=== PATIENT | female | born 1945 | race Caucasian/White ===

== ENCOUNTER → 2016-04-04 | Outpatient (CLI) | payer BC ==
[2016-04-04 12:14] LABS: COMPLETE YES; EOS % 1.8 %; HEMATOCRIT 42.3 % (37-47); IG% 0.2 %; LYMPH % 17.5 %; LYMPH ABS # 1.73 K/uL (1.2-3.4); MEAN CORPUSCULAR HEMOGLOBIN 31.4 pg (25-34); MEAN CORPUSCULAR HGB CONC 33.8 g/dl (32-36); MEAN PLATELET VOLUME 12.2 fL (7.4-10.4); MONO % 7.1 %; NEUT % 72.4 %; PLATELET COUNT 265 K/uL (130-400); RED BLOOD COUNT 4.55 M/uL (4.2-5.4)
[2016-04-04 12:55] LABS: FERRITIN 117.8 ng/ml (8.0-388.0); THYROID STIMULATING HORMONE 1.65 uIu/ml (0.300-4.500)
--- NOTE | 2016-04-10 11:56 | CODING QUERY MEDICAL NECESSITY ---
SUPPORTING DIAGNOSIS NEEDED A supporting diagnosis is required for the test/procedure performed on this patient in order for us to be reimbursed by the patient's insurance. Please provide a supporting diagnosis for the following test/procedure listed below next to the test name along with your signature. *If there is no additional diagnosis for this patient that would support the following test/procedure please document that below next to the test/procedure. Test(s)/Procedure(s) that require a supporting diagnosis: * VIT B-12 LEVEL DIAGNOSIS: * DOS: 04/04/16 Provider Signature: Date: Thank you [facility] Once completed, please kindly fax back to [phone] For questions please call [phone]
== END | disposition home or self-care (01) ==
LOC: C.LAB 11:04
PROVIDERS: ATTEND Psychiatry & Neurology Neurology
DX: R25.1 Tremor, unspecified (principal)

== ENCOUNTER → 2017-02-01 | Outpatient (CLI) | payer BC ==
[2017-02-01 15:33] LABS: BLOOD UREA NITROGEN 16 mg/dl (7-18); CREATININE 0.92 mg/dl (0.60-1.20)
== END | disposition home or self-care (01) ==
LOC: C.LAB 12:57
PROVIDERS: ATTEND Psychiatry & Neurology Neurology
DX: Z00.00 Encounter for general adult medical examination without abnormal findings (principal); R48.2 Apraxia; R41.3 Other amnesia; R32 Unspecified urinary incontinence

== ENCOUNTER → 2017-02-04 | Outpatient (CLI) | payer BC ==
[~2017-02-04] MED LIST: GADAVIST IV PRN
--- NOTE | 2017-02-04 14:51 | DIAGNOSTIC IMAGING REPORT ---
MRI OF THE BRAIN WITHOUT AND WITH IV CONTRAST CLINICAL HISTORY: R41.3 Memory [id number] Urinary [id number] Gait apraxia COMPARISON STUDY: 01/27/2015 TECHNIQUE: MRI of the brain was performed from the vertex to the skull base utilizing various T1 and T2 weighted sequences. Following the IV administration of 5.5 mL of Gadavist contrast, additional enhanced images were obtained. FINDINGS: Sagittal T1, axial diffusion, proton density and T2 weighted axial, coronal FLAIR, and pre and post axial T1-weighted images were acquired. These were supplemented with post gadolinium coronal T1 weighted images. No intra or extra-axial mass lesions are visualized. Axial diffusion-weighted images reveal no evidence of acute or subacute infarction. There is no evidence of ventricular dilatation. Proton density T2-weighted and FLAIR images reveal scattered foci of increased T2 signal within the white matter, likely on a small vessel basis. These remain similar to the preceding study. There are no abnormal flow voids. There is no evidence of pathologic enhancement. IMPRESSION: No significant change from the preceding study. No acute intracranial findings. No evidence of intracranial mass. No evidence of acute or subacute infarction. Electronically signed by: Hernesto Hall M.D. 02/04/2017 2:49 PM Dictated Date/Time: 02/04/2017 2:34 PM
== END | disposition home or self-care (01) ==
LOC: C.MRI 13:15
PROVIDERS: ATTEND Psychiatry & Neurology Neurology
DX: R41.3 Other amnesia (principal); R48.2 Apraxia; R32 Unspecified urinary incontinence

== ENCOUNTER 2023-10-24 11:39 | Observation (INO) ==
--- NOTE | 2023-10-24 12:01 | Emergency Department Note ---
Impression & Plan AMS (altered mental status), Acute hypernatremia ED Provider Note HISTORY OF PRESENT ILLNESS: Patient is a 78-year-old female presenting with altered mental status. History is obtained via EMS, as patient is nonverbal. Per report, patient has advanced dementia but is able to do a few ADLs and intermittently communicate verbally. Performance Improvement Coordinator was with the patient from 9 AM to 1400 yesterday and she was reportedly her normal self. However, when the patient was evaluated this morning by the caretakers she seemed to be confused. She did not get herself out of bed like normal. On arrival to the ER, the patient is saturated in urine and is unable to communicate or give any history. Performance Improvement Coordinator (later and supplies more history. Reports that she went to check on the patient this morning around 10 AM when she found the patient laying on her stomach and went to roll her over and found that the patient had vomited. Reports the patient is not acting her normal self. ROS: as above PHYSICAL EXAM: Constitutional: Patient appears in no acute distress. HENT: Head: Normocephalic and atraumatic. Eyes: EOMI, PERRL Mouth/Throat: Mucous membranes moist. Neck: Trachea midline. Neck supple. Cardiovascular: Tachycardic with regular rhythm. No murmurs, rubs or gallops. Intact distal pulses. Pulmonary/Chest: No respiratory distress. Breath sounds clear and equal bilaterally. No wheezes or rales. Abdominal: Abdomen soft, no tenderness, rebound or guarding. Musculoskeletal: No edema, tenderness or deformity noted. Skin: Warm and dry. No rash, erythema, pallor or cyanosis Neurological: Alert, but not answering any questions. CN II-XII grossly intact MDM: - Vitals signs showed hypertension and tachycardia. - History obtained via EMS, given patient's confusion. History as above. - Chronic conditions affecting care: Parkinson's disease; depression/anxiety; dementia - Differential diagnoses include, but are not limited to: UTI; pneumonia; CVA; intracranial hemorrhage; ACS; dysrhythmia; electrolyte abnormality; viral syndrome - Order placed for continuous cardiac monitoring. At this time, monitor showed rate of 100 bpm with normal sinus rhythm, per my interpretation. - External medical records reviewed. Neurology visit note dated 10/04/2023 was reviewed. Patient follows in their clinic for her advanced age dementia and Parkinson's disease. Her zonisamide was decreased at that visit due to patient's weight loss. - EKG interpreted by myself showed normal sinus rhythm. Rate tachycardic at 106 bpm. QT 342. No acute ischemic changes. - Laboratory workup interpreted by myself showed normal WBC; normal PT/INR; hypernatremia (Na 147); normal troponin; normal lipase; normal procalcitonin - CT head wo contrast negative for acute intracranial pathology - CXR negative for pneumonia, per my interpretation - UA obtained via straight cath negative for acute infection. - Patient given 1L NS in ER. - Patient not a TNK candidate, as last known well was over 16 hours ago. Will admit to hospital service for further workup, including potential MRI of the brain, given that patient is not back to her neurological baseline. - Discussion was had with director case about patient's case and need for admission - Hospitalist consulted for admission - Patient admitted to [facility] service for further evaluation and management. 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 Visual hallucinations (Acute) Tremor (Acute) Parkinsons disease (Chronic) Gait apraxia (Acute) Depression with anxiety (Acute) Dementia (Acute) Headache (Acute) Dizziness (Acute) Cognitive changes (Acute) RLS (restless legs syndrome) Seizure-like activity Surgical History H/O ovarian cystectomy History of hysteroscopy History of dental surgery Social History Smoking Status: Never smoker Preferred Language: Indonesian Feels Safe at Home: Yes Allergies Allergies Allergy/AdvReac Type Severity Reaction Status Date / Time No Known Allergies Allergy Unknown Verified 10/04/23 13:03 Home Meds Home Medications Medication Instructions Recorded Confirmed mirtazapine 15 mg tablet 15 mg PO HS 10/01/19 10/04/23 mirabegron 25 mg tablet,extended 25 mg PO DAILY 08/31/22 10/04/23 release 24 hr (Myrbetriq) aspirin 81 mg capsule 81 mg PO DAILY 02/27/23 10/04/23 Previous Rx's Medication Instructions Recorded carbidopa 25 mg-levodopa 100 mg 1 tab PO QAM #90 tabs 02/27/23 tablet carbidopa ER 50 mg-levodopa 200 mg 1 tab PO TID #270 tabs 02/27/23 tablet,extended release donepezil 10 mg tablet 10 mg PO HS 90 days #90 tabs 02/27/23 gabapentin 100 mg capsule 200 mg (2 x 100 mg) PO TID 30 days 02/27/23 #540 caps zonisamide 100 mg capsule 100 mg PO TID #270 caps 02/27/23 quetiapine 50 mg tablet 75 mg (1.5 x 50 mg) PO QPM #45 tabs 06/17/23 sertraline 100 mg tablet 100 mg PO DAILY #90 tabs 08/05/23 Results & Data (ED) Vital Signs Vital Signs - 24 hr 10/24/23 11:50 10/24/23 12:30 10/24/23 12:32 Temperature 37.0 C Temperature Source Axillary Pulse Rate 104 H 99 H 108 H Pulse Rate [Apical] Pulse Rhythm [Apical] Pulse Strength [Apical] Respiratory Rate 16 19 Respiratory Effort / Characteristics Non-Labored Spontaneous Respiratory Depth Normal Respiratory Pattern Regular Blood Pressure 155/108 H 149/81 H Blood Pressure [Right Arm] Blood Pressure Mean 123 103 Blood Pressure Mean [Right Arm] Blood Pressure Position Lying Pulse Oximetry 96 97 Oxygen Delivery Method Room Air Room Air Sepsis Recent Fever Within 48 Hours No Sepsis New/Unexplained Change in Mental Status Yes Sepsis Action Taken by Nursing Physician Notified 10/24/23 12:46 10/24/23 13:00 Temperature Temperature Source Pulse Rate 99 H Pulse Rate [Apical] 89 Pulse Rhythm [Apical] Regular Pulse Strength [Apical] Normal Respiratory Rate 22 20 Respiratory Effort / Characteristics Non-Labored Respiratory Depth Normal Respiratory Pattern Blood Pressure 175/103 H Blood Pressure [Right Arm] 149/81 H Blood Pressure Mean 137 Blood Pressure Mean [Right Arm] 103 Blood Pressure Position Pulse Oximetry 99 97 Oxygen Delivery Method Room Air Room Air Sepsis Recent Fever Within 48 Hours Sepsis New/Unexplained Change in Mental Status Sepsis Action Taken by Nursing Laboratory Data 10/24/23 11:59 10/24/23 11:59 Lab Results 08/01/24 08/01/24 Range/Units 11:59 12:07 WBC 9.96 (4.8-10.8) K/ul RBC 4.63 (4.20-5.40) M/uL Hgb 13.9 (12.0-16.0) g/dl Hct 42.2 (37.0-47.0) % MCV 91.1 (80.0-100.0) fL MCH 30.0 (25.0-34.0) pg MCHC 32.9 (32.0-36.0) g/dL RDW Std Deviation 43.4 (36.4-46.3) fL RDW Coeff of Nava 13.0 (11.5-14.5) % Plt Count 290 (130-400) K/uL MPV 11.5 (9.4-12.4) fL Immature Gran % (Auto) 0.3 % Neut % (Auto) 81.0 % Lymph % (Auto) 9.7 % [place] % (Auto) 7.0 % Eos % (Auto) 1.1 % Baso % (Auto) 0.9 % Neut # (Auto) 8.06 H (1.40-6.50) K/uL Lymph # (Auto) 0.97 L (1.20-3.40) K/uL [place] # (Auto) 0.70 H (0.11-0.59) K/uL Eos # (Auto) 0.11 (0.00-0.50) K/uL Baso # (Auto) 0.09 (0.00-0.20) K/uL Immature Gran # (Auto) 0.03 (0.01-0.20) K/uL PT 10.9 (9.0-12.0) Seconds INR 1.0 (0.9-1.1) Sodium 147 H (136-145) mmol/L Potassium 3.7 (3.5-5.1) mmol/L Chloride 112 H (98-107) mmol/L Carbon Dioxide 25 (21-32) mmol/L Anion Gap 10 (3-11) BUN 28 H (6-23) mg/dl Creatinine 0.85 (0.6-1.2) mg/dl Est Cr Clr Drug Dosing 28.4 ml/min Est GFR ( Amer) 76.1 ml/min Est GFR (Non-Af Amer) 65.6 ml/min BUN/Creatinine Ratio 32.9 H (10-20) Glucose 109 H (70-99(Fasting)) mg/dl Lactate 0.8 (0.4-2.0) mmol/L Calcium 9.7 (8.6-10.3) mg/dl Total Bilirubin 0.6 (0.2-1.0) mg/dl AST 12 L (13-39) U/L ALT < 3 L (7-52) U/L Alkaline Phosphatase 90 (34-104) U/L Troponin I High Sens 9.6 (0-14) pg/ml Total Protein 6.7 (6.0-8.3) gm/dl Albumin 4.5 (3.4-5.0) gm/dl Globulin 2.2 L (2.5-4.0) gm/dl Albumin/Globulin Ratio 2.0 (0.9-2) Lipase 21 (11-82) U/L Procalcitonin < 0.02 (0-0.5) ng/ml Urine Color Yellow Urine Appearance Turbid A (Clear) Urine pH 8.5 H (4.5-7.5) Ur Specific [place] 1.019 (1.000-1.030) Urine Protein Trace H (Negative) Urine Glucose (UA) Negative (Negative) Urine Ketones Negative (Negative) Urine Blood Negative (Negative) Urine Nitrite Negative (Negative) Urine Bilirubin Negative (Negative) Urine Urobilinogen Negative (Negative) Ur Leukocyte Esterase 1+ H (Negative) Urine WBC (Auto) 0-5 (0-5) /hpf Urine RBC (Auto) 0-2 (0-2) /hpf U Hyaline Cast (Auto) 0-2 (0-2) /lpf U Epithel Cells (Auto) 0-2 (0-2) /hpf Urine Bacteria (Auto) None Seen (None Seen) Amorphous Sediment Present A (None Prsent) Administered Medications Discontinued Medications Sodium Chloride (Nss) 1,000 mls @ 999 mls/hr IV .Q1H1M STA Stop: 10/24/23 12:58 Last Infusion: 10/24/23 13:22 Dose: Infused Documented By: Admin: 10/24/23 12:07 Dose: 999 mls/hr Documented By: CHRISTIE Imaging Data Radiologist's Impression: Chest X-Ray 10/24/23 11:58 XR chest 1V portable CLINICAL HISTORY: confusion TECHNIQUE: Single frontal radiograph of the chest was obtained. Comparison: Comparison is made to chest radiograph 12/26/2022 FINDINGS: No lines and tubes are seen. The cardiomediastinal silhouette is normal. The lungs are clear. No evidence of pleural effusion or pneumothorax. IMPRESSION: No acute chest disease. ACT 112: Negative or not required by law. Electronically signed by: Rm Rush M.D. 10/24/2023 12:[address] 10/24/23 11:58 CT head/brain wo con CLINICAL HISTORY: altered mental status Technique: Contiguous axial CT images of the head were acquired from the base of the skull to the vertex without intravenous contrast administration. Images were viewed in brain, subdural and bone windows. Automated dose lowering techniques and/or adjustment according to patient size were utilized for this exam. Comparison: None available at the time of this dictation. Findings: Areas of decreased attenuation are present in the periventricular and subcortical white matter bilaterally consistent with small vessel ischemic disease. Generalized cerebral atrophy with commensurate enlargement of the ventricles, sulci, and cisterns is also present. There is no acute intracranial hemorrhage or evidence of acute territorial infarction. No shift of the midline structures, mass effect, or extra-axial abnormalities are shown. Atherosclerotic calcifications are present in the intracranial segments of the internal carotid arteries. Imaged portions of the paranasal sinuses and mastoid air cells are clear. The orbits appear normal. There are no acute fractures of the calvaria or scalp swelling. Impression: No acute intracranial hemorrhage, no evidence of acute territorial infarction or other acute intracranial disease process. ACT 112: Negative or not required by law. Electronically signed by: Rm Rush M.D. 10/24/2023 12:32 PM Discharge Plan Visit Data Chief Complaint: Altered Mental Status ED Provider: Shilpi Vargas Discharge Problem: AMS (altered mental status), Acute hypernatremia Forms Stand Alone Forms: [facility] [place] Prescriptions Prescriptions: No Action quetiapine 50 mg tablet 75 mg PO QPM Qty: 45 6RF aspirin 81 mg capsule 81 mg PO DAILY carbidopa-levodopa 25-100 mg tablet 1 tab PO QAM Qty: 90 2RF carbidopa-levodopa 50-200 mg tablet extended release 1 tab PO TID Qty: 270 2RF donepezil 10 mg tablet 10 mg PO HS 90 Days Qty: 90 2RF gabapentin 100 mg capsule 200 mg PO TID 30 Days Qty: 540 2RF zonisamide 100 mg capsule 100 mg PO TID Qty: 270 2RF Myrbetriq 25 mg tablet extended release 24 hr 25 mg PO DAILY mirtazapine 15 mg tablet 15 mg PO HS sertraline 100 mg tablet 100 mg PO DAILY Qty: 90 2RF Referrals Referrals: Jen Lawler DO [Primary Care Provider] -
[2023-10-24] MEDS: SODIUM CHLORIDE 0.9% 1,000 ML IV STA (12:07)
[2023-10-24 12:23] LABS: Basophils # (auto) 0.09 K/uL (0.00-0.20); Basophils % (auto) 0.9 %; Eosinophils # (auto) 0.11 K/uL (0.00-0.50); Eosinophils % (auto) 1.1 %; Hematocrit (blood only) 42.2 % (37.0-47.0); Hemoglobin 13.9 g/dl (12.0-16.0); Immature Granulocytes # (auto) 0.03 K/uL (0.01-0.20); Immature Granulocytes % (auto) 0.3 %; Lymphocytes # (auto) 0.97 K/uL (1.20-3.40); Lymphocytes % (auto) 9.7 %; Mean Corpuscular Hgb Conc 32.9 g/dL (32.0-36.0); Mean Corpuscular Volume 91.1 fL (80.0-100.0); Mean Platelet Volume 11.5 fL (9.4-12.4); Neutrophils # (auto) 8.06 K/uL (1.40-6.50); Platelet Count 290 K/uL (130-400); RDW Standard Deviation 43.4 fL (36.4-46.3); Red Blood Count 4.63 M/uL (4.20-5.40); White Blood Count 9.96 K/ul (4.8-10.8)
--- NOTE | 2023-10-24 12:33 | CT Scan Report ---
CT head/brain wo con CLINICAL HISTORY: altered mental status Technique: Contiguous axial CT images of the head were acquired from the base of the skull to the [place] without intravenous contrast administration. Images were viewed in brain, subdural and bone [facility]. Automated dose lowering techniques and/or adjustment according to patient size were utilized for this exam. Comparison: None available at the time of this dictation. Findings: Areas of decreased attenuation are present in the periventricular and subcortical white matter bilate rally consistent with small vessel ischemic disease. Generalized cerebral atrophy with commensurate e nlargement of the ventricles, sulci, and cisterns is also present. There is no acute intracranial hem orrhage or evidence of acute territorial infarction. No shift of the midline structures, mass effect, or extra-axial abnormalities are shown. Atherosclerotic calcifications are present in the intracran ial segments of the internal carotid arteries. Imaged portions of the paranasal sinuses and mastoid air cells are clear. The orbits appear normal. There are no acute fractures of the calvaria or scalp swelling. Impression: No acute intracranial hemorrhage, no evidence of acute territorial infarction or other acute intracra nial disease process. ACT 112: Negative or not required by law. Electronically signed by: Rm Rush M.D. 10/24/2023 12:32 PM
[2023-10-24 12:39] LABS: Anion Gap 10 (3-11); BUN Creatinine Ratio 32.9 (10-20); Blood Urea Nitrogen 28 mg/dl (6-23); Calcium 9.7 mg/dl (8.6-10.3); Carbon Dioxide 25 mmol/L (21-32); Chloride 112 mmol/L (98-107); Creatinine Clr Calc Pharmacy 28.4 ml/min; Est GFR (African American) 76.1 ml/min; Est GFR (Non-African American) 65.6 ml/min; Glucose 109 mg/dl (70-99(Fasting)); Potassium 3.7 mmol/L (3.5-5.1); Sodium 147 mmol/L (136-145)
--- NOTE | 2023-10-24 12:40 | XRay Report ---
XR chest 1V portable CLINICAL HISTORY: confusion TECHNIQUE: Single frontal radiograph of the chest was obtained. Comparison: Comparison is made to chest radiograph 12/26/2022 FINDINGS: No lines and tubes are seen. The cardiomediastinal silhouette is normal. The lungs are clear. No evid ence of pleural effusion or pneumothorax. IMPRESSION: No acute chest disease. ACT 112: Negative or not required by law. Electronically signed by: Rm Rush M.D. 10/24/2023 12:38 PM
[2023-10-24 12:44] LABS: Troponin I High Sensitivity 9.6 pg/ml (0-14)
[2023-10-24 12:47] LABS: Alanine Aminotransferase < 3 U/L (7-52); Albumin Level 4.5 gm/dl (3.4-5.0); Alkaline Phosphatase 90 U/L (34-104); Aspartate Aminotransferase 12 U/L (13-39); Bilirubin,Total 0.6 mg/dl (0.2-1.0); Globulin 2.2 gm/dl (2.5-4.0); Lipase 21 U/L (11-82); Total Protein 6.7 gm/dl (6.0-8.3)
[2023-10-24 12:48] LABS: Prothrombin Time 10.9 Seconds (9.0-12.0)
[2023-10-24 13:01] LABS: Appearance Urine Turbid (Clear); Bacteria Urine Automated None Seen (None Seen); Bilirubin Urine Negative (Negative); Blood Urine Negative (Negative); Cast Urine Automated 0-2 /lpf (0-2); Color Urine Yellow; Epithelial Cell Urine Auto 0-2 /hpf (0-2); Glucose Urine UA Negative (Negative); Ketones Urine Negative (Negative); Leukocyte Esterase Urine 1+ (Negative); Nitrite Urine Negative (Negative); Protein Urine Trace (Negative); RBC Urine Automated 0-2 /hpf (0-2); Specific Gravity Urine 1.019 (1.000-1.030); Urobilinogen Urine Negative (Negative); WBC Urine Automated 0-5 /hpf (0-5); pH Urine 8.5 (4.5-7.5)
[2023-10-24 13:12] LABS: Amorphous Sediment Urine Present (None Prsent)
--- NOTE | 2023-10-24 15:06 | History & Physical Report ---
Date of Service October 24, 2023 Assessment & Plan (1) Metabolic encephalopathy: (2) Acute hypernatremia: (3) Parkinsons disease: (4) Dementia: (5) Depression with anxiety: Plan This is a 78-year-old female who has significant past medical history of dementia in setting of Parkinson's disease, IBS, overactive bladder and depression who presents to ED secondary to altered mental status. Pt with advanced Parkinson disease and dementia. Presents to ED after episode of unwitnessed vomiting vs spitting up pills. Per EMS report ? aspiration. Pt lives at home with and has caretakers during the day. Per ED provider grinding and spraying supervisor felt pt more confused. Poor intake over last few days per and she was w/o her parkinson meds this a.m. due to spitting/vomiting them up which has resulted in her to be very, "stiff." Advanced Parkinson disease with dementia and possible worsened confusion Metabolic encephalopathy in setting of dehydration Hypernatremia Dehydration Possible Aspiration admit to medical unable to get accurate neuro assessment due to pt unable to follow commands does not want aggressive work up with MRI , TSH WNL, no indication for blood cultures and she does not clinical or labs do not represent infection ? aspiration component per history; however CXR clear, no sx empirically tx with IV unasyn for now and probiotic Hydrate with D5 1/2 NSS @ 80cc/hr x 2 L, repeat bmp at 2100 and in a.m. PT/OT ensure proper timing of meds - she takes short acting carbidopa-levodopa at 0800 and long acting 0800 12 and 1600, will bring in long acting continue home meds of carbidopa levodopa, zonisamide, Seroquel, sertraline, gabapentin and Aricept DVT ppx: SQ lovenox PCP: Jen Lawler DNR/DNI per Dispo: admit to medical, hydrate, repeat labs in a.m., PT/OT Pt was seen and examined in collaboration with Dr. Holden, please see addendum A total of 76 minutes was spent coordinating, documenting, and providing care for this patient excluding time spent in the performance of separately billed services. This included personally viewing all current laboratories and imaging studies, medication reconciliation, outpatient chart review, and discussion with specialists. Obed Johnson contact [phone] - please contact with updates History of Present Illness Chief Complaint: AMS and vomiting prior to arrival. Primary Care Provider: Jen Lawler, This is a 78-year-old female who has significant past medical history of dementia in setting of Parkinson's disease, IBS, overactive bladder and depression who presents to ED secondary to altered mental status. Patient lives at home with her and has caretakers during the day. Her is at bedside who helps elicit history as ROS unobtainable from patient. Outpt records reviewed. He states he woke up and left the house around 830. He was going golfing today. He felt she was in her usual state of health. He then received a call from the grinding and spraying supervisor that when she went to check on her she was lying in droll and had spit up her medicine. There is question if she may have vomited or aspirated. Per ED provider who spoke to grinding and spraying supervisor she felt that she was more confused than usual. at bedside is concerned that she did not get her Parkinson's medications in the morning since she spit them up and therefore he self administered to her in the ED at approximately 1400. He self administered a carbidopa levodopa [id number] ER tablet as well as her short acting carbidopa levodopa 25-100 mg tablet. At baseline Patient is ambulatory without assist device. She did have 3 falls yesterday and he reports over the last 3 months her cognition has been worsening. She has also been coming more unsteady. He states he does not wish to pursue further imaging for example MRI to eval for possible stroke. He denies any recent illness, fever, chills, sweats, reports of vomiting or diarrhea. She is incontinent of stool and urine. He gives her Colace once daily. He states that she has not been eating and drinking well. He typically can get her to eat a good breakfast, but the rest of the day it is difficult to get her meals or medications. In ED patient made hemodynamically stable. Her lab work was notable for elevated sodium at 147, chloride 112, BUN 28, creatinine 0.85, negative urinalysis for infection, chest x-ray negative, respiratory BioFire negative. She received IV fluids in the ED. Allergies Allergy/AdvReac Type Severity Reaction Status Date / Time No Known Allergies Allergy Unknown Verified 10/04/23 13:03 Home Medications Medication Instructions Recorded Confirmed Type mirtazapine 15 mg tablet 15 mg PO HS 10/01/19 10/24/23 History carbidopa 25 mg-levodopa 100 mg 1 tab PO QAM #90 tabs 02/27/23 10/24/23 Rx tablet carbidopa ER 50 mg-levodopa 200 mg 1 tab PO TID #270 tabs 02/27/23 10/24/23 Rx tablet,extended release donepezil 10 mg tablet 10 mg PO HS 90 days #90 tabs 02/27/23 10/24/23 Rx zonisamide 100 mg capsule 100 mg PO TID #270 caps 02/27/23 10/24/23 Rx alendronate 70 mg tablet 70 mg PO SA 10/24/23 10/24/23 History cholecalciferol (vitamin D3) 50 50 mcg PO DAILY 10/24/23 10/24/23 History mcg (2,000 unit) capsule (Vitamin D3) gabapentin 100 mg capsule 100 mg PO TID 10/24/23 10/24/23 History quetiapine 50 mg tablet 50 mg PO QPM 10/24/23 10/24/23 History sertraline 100 mg tablet 100 mg PO DAILY 10/24/23 10/24/23 History Past Med/Surg History Problem List (Updated 10/24/23 @ 16:05 by Sujey Toro PA-C) Metabolic encephalopathy Acute hypernatremia (Acute) AMS (altered mental status) (Acute) 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 Visual hallucinations (Acute) Tremor (Acute) Parkinsons disease (Chronic) Gait apraxia (Acute) Depression with anxiety (Acute) Dementia (Acute) Headache (Acute) Dizziness (Acute) Cognitive changes (Acute) RLS (restless legs syndrome) Seizure-like activity Surgical History H/O ovarian cystectomy History of hysteroscopy History of dental surgery Social History Smoking Status: Never smoker Hx Alcohol Use: No Hx Substance Use: No Preferred Language: [place] Car Lubricator Required: No Beliefs That Will Affect Care: None Current Living Situation: Spouse Other Information That Helps Us Care for You: No Feels Safe at Home: Yes Safety Concerns: Feels Safe At This Time Review of Systems Review of Systems: Unobtainable due to cognitive status Physical Exam Physical Exam: Constitutional: Chronically ill appearing, F, Thin, parkinsonian affect, m asked facies, vitals as above, NAD, sitting up in bed, unable to answer questions appropriately Head: Normocephalic, Atraumatic Eyes: PERRL, conjunctivae normal, anicteric sclerae ENMT: external ear and nose normal, oropharynx dry membranes Neck: trachea midline, no thyromegaly normal visual inspection Respiratory: normal respiratory effort, lungs clear to auscultation, no wheeze, rales, rhonchi. poor inspiratory effort. No accessory muscle use Cardiovascular: RRR, no murmur, no edema Vessels: no JVD or carotid bruit Chest: normal inspection of chest Abdomen: normal bowel sounds, soft, nontender, no hepatosplenomegaly Musculoskeletal: no cyanosis or clubbing, unable to assess neuro/msk exam as pt non able to follow commands due to dementia Skin: no rashes, warm and dry normal turgor Neurologic: no face palsy, CN's II-XI intact bilaterally and moves all extremities Psychiatric: alert but not oriented, euthymic affect Lymphatic: no cervical or axillary lymphadenopathy : deferred Results & Data Results & Data Vital Signs (Past 12 Hours) Vital Signs Temp Pulse Pulse Resp BP BP Pulse Ox 10/24/23 13:00 99 H 20 175/103 H 97 10/24/23 12:46 89 22 149/81 H 99 10/24/23 12:32 108 H 10/24/23 12:30 99 H 19 149/81 H 97 10/24/23 11:50 37.0 C 104 H 16 155/108 H 96 O2 Del Method 10/24/23 13:00 Room Air 10/24/23 12:46 Room Air 10/24/23 12:32 10/24/23 12:30 Room Air 10/24/23 11:50 Room Air Laboratory Results I have independently reviewed and interpreted patient's admitting labs including CBC, CMP, PT/INR, lipase, UA and resp biofire and troponin. Diagnostic Findings Chest X-Ray 10/24/23 11:58 XR chest 1V portable CLINICAL HISTORY: confusion TECHNIQUE: Single frontal radiograph of the chest was obtained. Comparison: Comparison is made to chest radiograph 12/26/2022 FINDINGS: No lines and tubes are seen. The cardiomediastinal silhouette is normal. The lungs are clear. No evidence of pleural effusion or pneumothorax. IMPRESSION: No acute chest disease. ACT 112: Negative or not required by law. Electronically signed by: Rm Rush M.D. 10/24/2023 12:[address] 10/24/23 11:58 CT head/brain wo con CLINICAL HISTORY: altered mental status Technique: Contiguous axial CT images of the head were acquired from the base of the skull to the vertex without intravenous contrast administration. Images were viewed in brain, subdural and bone windows. Automated dose lowering techniques and/or adjustment according to patient size were utilized for this exam. Comparison: None available at the time of this dictation. Findings: Areas of decreased attenuation are present in the periventricular and subcortical white matter bilaterally consistent with small vessel ischemic disease. Generalized cerebral atrophy with commensurate enlargement of the ventricles, sulci, and cisterns is also present. There is no acute intracranial hemorrhage or evidence of acute territorial infarction. No shift of the midline structures, mass effect, or extra-axial abnormalities are shown. Atherosclerotic calcifications are present in the intracranial segments of the internal carotid arteries. Imaged portions of the paranasal sinuses and mastoid air cells are clear. The orbits appear normal. There are no acute fractures of the calvaria or scalp swelling. Impression: No acute intracranial hemorrhage, no evidence of acute territorial infarction or other acute intracranial disease process. ACT 112: Negative or not required by law. Electronically signed by: Rm Rush M.D. 10/24/2023 12:32 PM Medications Administered Medication List Discontinued Medications Sodium Chloride (Nss) 1,000 mls @ 999 mls/hr IV .Q1H1M STA Stop: 10/24/23 12:58 Last Infusion: 10/24/23 13:22 Dose: Infused Documented By: Admin: 10/24/23 12:07 Dose: 999 mls/hr Documented By: MMN ECG Additional Comments: I have independently reviewed and interpreted patient's admitting EKG which revealed: 106 ST qtc 454ms, nonspec ct abn but no significant ST t wave change COVID-19 Results Results COVID-19 Adm Lab Results: RBC 4.63 M/uL (4.20-5.40) 10/24/23 WBC 9.96 K/ul (4.8-10.8) 10/24/23 Hgb 13.9 g/dl (12.0-16.0) 10/24/23 Hct 42.2 % (37.0-47.0) 10/24/23 Plt Count 290 K/uL (130-400) 10/24/23 Neutrophils (%) (Auto) 81.0 % 10/24/23 Lymphocytes (%) (Auto) 9.7 % 10/24/23 Monocytes # (Auto) 0.70 K/uL (0.11-0.59) H 10/24/23 Eosinophils # (Auto) 0.11 K/uL (0.00-0.50) 10/24/23 Immature Granulocyte % (Auto) 0.3 % 10/24/23 Neutrophils # (Auto) 8.06 K/uL (1.40-6.50) H 10/24/23 Lymphocytes # (Auto) 0.97 K/uL (1.20-3.40) L 10/24/23 Monocytes # (Auto) 0.70 K/uL (0.11-0.59) H 10/24/23 Eosinophils # (Auto) 0.11 K/uL (0.00-0.50) 10/24/23 Basophils # (Auto) 0.09 K/uL (0.00-0.20) 10/24/23 Immature Granulocyte # (Auto) 0.03 K/uL (0.01-0.20) 4 Na 143 mmol/L (136-145) 10/24/23 K 3.3 mmol/L (3.5-5.1) L 10/24/23 Cl 114 mmol/L (98-107) H 10/24/23 CO2 23 mmol/L (21-32) 10/24/23 Anion Gap 6 (3-11) 10/24/23 BUN 28 mg/dl (6-23) H 10/24/23 Creatinine 0.85 mg/dl (0.6-1.2) 10/24/23 BUN/Creatinine Ratio 32.9 (10-20) H 10/24/23 Glucose Level 109 mg/dl (70-99(Fasting)) H 10/24/23 Ca 9.1 mg/dl (8.6-10.3) 10/24/23 Total Bilirubin 0.6 mg/dl (0.2-1.0) 10/24/23 AST/SGOT 12 U/L (13-39) L 10/24/23 ALT/SGPT < 3 U/L (7-52) L 10/24/23 Alkaline Phosphatase 90 U/L (34-104) 10/24/23 Total Protein 6.7 gm/dl (6.0-8.3) 10/24/23 Albumin 4.5 gm/dl (3.4-5.0) 10/24/23 Globulin 2.2 gm/dl (2.5-4.0) L 10/24/23 Albumin/Globulin Ratio 2.0 (0.9-2) 10/24/23 Procalcitonin < 0.02 ng/ml (0-0.5) 10/24/23 INR 1.0 (0.9-1.1) 10/24/23 Adenovirus (PCR) Not Detected (NotDetected) 10/24/23 B. parapertussis DNA (PCR) Not Detected (NotDetected) 04/17 B. pertussis DNA (PCR) Not Detected (NotDetected) 10/24/23 C. pneumoniae DNA (PCR) Not Detected (NotDetected) 4 Coronavirus Type OC43 (PCR) Not Detected (NotDetected) 04/17 Coronavirus Type HKU1 (PCR) Not Detected (NotDetected) 04/17 Coronavirus Type 229E (PCR) Not Detected (NotDetected) 04/17 COVID-19 PCR Not Detected (NotDetected) 10/24/23 Coronavirus Type NL63 (PCR) Not Detected (NotDetected) 04/17 Human Metapneumovirus (PCR) Not Detected (NotDetected) 04/17 Influenza Virus Type A (PCR) Not Detected (NotDetected) Influenza Virus Type B (PCR) Not Detected (NotDetected) M. pneumoniae (PCR) Not Detected (NotDetected) 10/24/23 Parainfluenza Type 1 (PCR) Not Detected (NotDetected) 04/17 Parainfluenza Type 2 (PCR) Not Detected (NotDetected) 04/17 Parainfluenza Type 3 (PCR) Not Detected (NotDetected) 04/17 Parainfluenza Type 4 (PCR) Not Detected (NotDetected) 04/17 RSV (PCR) Not Detected (NotDetected) 10/24/23 Enterovirus/Rhinovirus (PCR) Not Detected (NotDetected) Chest X-Ray 10/24/23 Code Status & VTE Plan Code Status DNR/DNI Supervising Physician Co-Signing Physician Notes Patient was seen and examined independently at bedside. Chart reviewed. Case discussed with Sujey SEO and agree with the documentation above with regards to HPI, PE and A/P. (3) Parkinsons disease Dyskinesia presence: with dyskinesia Fluctuating manifestations: without fluctuating manifestations Qualified Code(s): G20.B1 - Parkinson's disease with dyskinesia, without mention of fluctuations (4) Dementia Dementia behavioral or psychological symptom: with psychotic disturbance Dementia severity: severe Dementia type: Parkinson's disease Qualified Code(s): G20.A1 - Parkinson's disease without dyskinesia, without mention of fluctuations; F02.C2 - Dementia in other diseases classified elsewhere, severe, with psychotic disturbance
[2023-10-24 15:34] LABS: Adenovirus PCR Not Detected (NotDetected); Bordetella parapertussis PCR Not Detected (NotDetected); Bordetella pertussis PCR Not Detected (NotDetected); Chlamydia pneumoniae PCR Not Detected (NotDetected); Coronavirus 229E PCR Not Detected (NotDetected); Coronavirus CoV-2 (COVID19)PCR Not Detected (NotDetected); Coronavirus HKU1 PCR Not Detected (NotDetected); Coronavirus NL63 PCR Not Detected (NotDetected); Coronavirus OC43PCR Not Detected (NotDetected); Human Metapneumovirus PCR Not Detected (NotDetected); Influenza A PCR Not Detected (NotDetected); Influenza B PCR Not Detected (NotDetected); Mycoplasma pneumoniae PCR Not Detected (NotDetected); Parainfluenza Virus 1 PCR Not Detected (NotDetected); Parainfluenza Virus 2 PCR Not Detected (NotDetected); Parainfluenza Virus 3 PCR Not Detected (NotDetected); Parainfluenza Virus 4 PCR Not Detected (NotDetected); Respiratory Syncytial VirusPCR Not Detected (NotDetected); Rhinovirus/Enterovirus PCR Not Detected (NotDetected)
[2023-10-24] MEDS ORDERED: LACTATED RINGER'S 1,000 ML IV SCH (16:00)
[2023-10-24] MEDS ORDERED: POLYETHYLENE (MIRALAX) 17 GM PACK PO PRN (16:59)
[2023-10-24] MEDS ORDERED: ACETAMINOPHEN 325 MG TAB PO PRN (16:59)
[2023-10-24] MEDS ORDERED: MELATONIN 3 MG TAB PO PRN (16:59)
[2023-10-24] MEDS ORDERED: FAMOTIDINE 20 MG TAB PO PRN (16:59)
[2023-10-24] MEDS ORDERED: ONDANSETRON INJ 2 MG/ML 2 ML VIAL IV PRN (16:59)
[2023-10-24] MEDS: AMPICILLIN/SULBACTAM SOD 3,000 MG in SODIUM CHLOR 0.9% MINI-B 100 ML IV STA (17:07)
[2023-10-24] MEDS: D5W AND 1/2NSS 1,000 ML IV SCH (17:12)
[2023-10-24] MEDS: CARBIDOPA/LEVODOPA 50/200MG EXT REL TAB PO SCH (18:01)
[2023-10-24] MEDS: QUEtiapine FUMARATE 25 MG TABLET PO SCH (18:06)
[2023-10-24] MEDS: ZONISAMIDE 100 MG CAPSULE PO SCH (19:42)
[2023-10-24] MEDS: GABAPENTIN 100 MG CAP PO SCH (19:43)
[2023-10-24] MEDS: DOCUSATE SODIUM 100 MG CAP PO SCH (19:43)
[2023-10-24] MEDS: DONEPEZIL HCL 10 MG TAB PO SCH (19:43)
[2023-10-24] MEDS: MIRTAZAPINE TAB 15 MG TAB PO SCH (19:43)
[2023-10-24] MEDS: ENOXAPARIN INJ 30 MG/0.3 ML SYR SQ SCH (19:44)
[2023-10-24 21:39] LABS: Calcium 9.1 mg/dl (8.6-10.3); Potassium 3.3 mmol/L (3.5-5.1)
[2023-10-24 21:45] LABS: BUN Creatinine Ratio 30.9 (10-20); Creatinine Clr Calc Pharmacy 58.1 ml/min; Est GFR (African American) 80.6 ml/min; Est GFR (Non-African American) 69.6 ml/min
[2023-10-25] MEDS: POTASSIUM CHLORIDE / WTR 10 MEQ/100 ML PLCT IV SCH (01:30)
[2023-10-25] MEDS: POTASSIUM CHLORIDE CRTAB 20 MEQ TABCR PO STA (02:11)
[2023-10-25] MEDS: AMPICILLIN/SULBACTAM SOD 3,000 MG in SODIUM CHLOR 0.9% MINI-B 100 ML IV SCH (05:33)
[2023-10-25 07:16] LABS: Basophils # (auto) 0.09 K/uL (0.00-0.20); Eosinophils # (auto) 0.38 K/uL (0.00-0.50); Eosinophils % (auto) 4.4 %; Hematocrit (blood only) 38.1 % (37.0-47.0); Hemoglobin 12.8 g/dl (12.0-16.0); Immature Granulocytes # (auto) 0.04 K/uL (0.01-0.20); Immature Granulocytes % (auto) 0.5 %; Lymphocytes # (auto) 1.37 K/uL (1.20-3.40); Lymphocytes % (auto) 15.8 %; Mean Corpuscular Hemoglobin 31.1 pg (25.0-34.0); Mean Corpuscular Hgb Conc 33.6 g/dL (32.0-36.0); Mean Corpuscular Volume 92.7 fL (80.0-100.0); Mean Platelet Volume 11.6 fL (9.4-12.4); Monocytes # (auto) 0.73 K/uL (0.11-0.59); Monocytes % (auto) 8.4 %; Neutrophils # (auto) 6.06 K/uL (1.40-6.50); Neutrophils % (auto) 69.9 %; Platelet Count 259 K/uL (130-400); Red Blood Count 4.11 M/uL (4.20-5.40); White Blood Count 8.67 K/ul (4.8-10.8)
[2023-10-25 07:29] LABS: BUN Creatinine Ratio 22.5 (10-20); Calcium 8.7 mg/dl (8.6-10.3); Creatinine Clr Calc Pharmacy 58.8 ml/min; Est GFR (African American) 81.8 ml/min; Est GFR (Non-African American) 70.6 ml/min; Magnesium 1.9 mg/dl (1.7-2.4); Potassium 3.9 mmol/L (3.5-5.1)
[2023-10-25] MEDS ORDERED: CARBIDOPA/LEVODOPA 25/100MG TAB PO SCH (09:00)
[2023-10-25] MEDS: ADVANCED PROBIOTIC 625 MG CAPSULE PO SCH (09:01)
[2023-10-25] MEDS: CHOLECALCIFEROL 25 MCG (1000 UNITS) TAB PO SCH (09:02)
[2023-10-25] MEDS: CARBIDOPA/LEVODOPA 25/100MG TAB PO SCH (09:32)
[2023-10-25] MEDS: SERTRALINE HCL 100 MG TABLET PO SCH (10:10)
[2023-10-25] MEDS ORDERED: AMPICILLIN/SULBACTAM SOD 3,000 MG in SODIUM CHLOR 0.9% MINI-B 100 ML IV SCH (12:00)
--- NOTE | 2023-10-25 14:12 | Discharge Summary ---
Date of Service October 25, 2023 Admission HPI Per Admitting Provider This is a 78-year-old female who has significant past medical history of dementia in setting of Parkinson's disease, IBS, overactive bladder and depression who presents to ED secondary to altered mental status. Patient lives at home with her and has caretakers during the day. Her is at bedside who helps elicit history as ROS unobtainable from patient. Outpt records reviewed. He states he woke up and left the house around 830. He was going golfing today. He felt she was in her usual state of health. He then received a call from the agile tester that when she went to check on her she was lying in droll and had spit up her medicine. There is question if she may have vomited or aspirated. Per ED provider who spoke to agile tester she felt that she was more confused than usual. at bedside is concerned that she did not get her Parkinson's medications in the morning since she spit them up and therefore he self administered to her in the ED at approximately 1400. He self administered a carbidopa levodopa [id number] ER tablet as well as her short acting carbidopa levodopa 25-100 mg tablet. At baseline Patient is ambulatory without assist device. She did have 3 falls yesterday and he reports over the last 3 months her cognition has been worsening. She has also been coming more unsteady. He states he does not wish to pursue further imaging for example MRI to eval for possible stroke. He denies any recent illness, fever, chills, sweats, reports of vomiting or diarrhea. She is incontinent of stool and urine. He gives her Colace once daily. He states that she has not been eating and drinking well. He typically can get her to eat a good breakfast, but the rest of the day it is difficult to get her meals or medications. In ED patient made hemodynamically stable. Her lab work was notable for elevated sodium at 147, chloride 112, BUN 28, creatinine 0.85, negative urinalysis for infection, chest x-ray negative, respiratory BioFire negative. She received IV fluids in the ED. Admission Exam Per Admitting Provider Constitutional: Chronically ill appearing, F, Thin, parkinsonian affect, mas ked facies, vitals as above, NAD, sitting up in bed, unable to answer questions appropriately Head: Normocephalic, Atraumatic Eyes: PERRL, conjunctivae normal, anicteric sclerae ENMT: external ear and nose normal, oropharynx dry membranes Neck: trachea midline, no thyromegaly normal visual inspection Respiratory: normal respiratory effort, lungs clear to auscultation, no wheeze, rales, rhonchi. poor inspiratory effort. No accessory muscle use Cardiovascular: RRR, no murmur, no edema Vessels: no JVD or carotid bruit Chest: normal inspection of chest Abdomen: normal bowel sounds, soft, nontender, no hepatosplenomegaly Musculoskeletal: no cyanosis or clubbing, unable to assess neuro/msk exam as pt non able to follow commands due to dementia Skin: no rashes, warm and dry normal turgor Neurologic: no face palsy, CN's II-XI intact bilaterally and moves all extremities Psychiatric: alert but not oriented, euthymic affect Lymphatic: no cervical or axillary lymphadenopathy : deferred Principal Diagnosis Hypernatremia Discharge Exam Constitutional: Awake, able to follow simple commands. Not in any distress Respiratory: normal respiratory effort, lungs clear to auscultation, no wheeze, rales, rhonchi. Normal insp/exp effort, no accessory muscle use Cardiovascular: RRR, no murmur, no edema Vessels: no JVD or carotid bruit Chest: normal inspection of chest Abdomen: normal bowel sounds, soft, nontender, no hepatosplenomegaly Musculoskeletal: no cyanosis or clubbing, extremities motor strength 5/5 Skin: no rashes, warm and dry normal turgor Neurologic: PERRL, EOMI, accommodation nl, no face palsy, no dysarthria CN's II- XI intact bilaterally and moves all extremities Discharge Data Allergies Allergy/AdvReac Type Severity Reaction Status Date / Time No Known Allergies Allergy Unknown Verified 10/04/23 13:03 Consultations 10/24/23 13:58 ED Decision to Admit Stat Ordered Studies 10/24/23 11:58 CT head/brain wo con Stat Hospital Course (1) Metabolic encephalopathy: (2) Acute hypernatremia: (3) Parkinsons disease: (4) Dementia: (5) Depression with anxiety: Plan This is a 78-year-old female who has significant past medical history of dementia in setting of Parkinson's disease, IBS, overactive bladder and depression who presents to ED secondary to altered mental status. Pt lives at home with and has caretakers during the day. Patient had Poor intake over last few days per and she was w/o her parkinson meds on the day of admission that let her to be slightly lethargic. Evaluation showed hypernatremia with serum sodium of 147 Patient was admitted to medical floor; started on half-normal saline. Her sodium level improved. Her mentation was back to baseline as per her in the morning. He wanted to take her home. Patient was discharged home. Please note the above document was generated using voice recognition software. It may contain grammatical, syntax or spelling errors. Any formal questions or concerns about the content, text or information contained within the body of this dictation should be directly addressed to the provider for clarification Total Time Total Time Spent Total Time Spent (In Minutes): 34 Total Time Includes: Examination of the Patient, Discharge Planning, Medication Reconciliation, Communication With Other Providers and Other Discharge Plan Discharge Items Patient Disposition: Home - Self-Care Reason For Visit: CONFUSION Discharge Diagnosis: Hypernatremia Activity: Resume your previous activity Non-emergency contact: Primary Care Provider Call non-emergency contact if: you have any medication questions and your symptoms worsen Follow-up/Referrals: Jen Lawler DO [Primary Care Provider] - Diet: Regular Fluids: 1500ml (6 cups) Addtl Attending Provider Instructions: You were admitted to the hospital due to high sodium level. The reason for it is dehydration( decreased fluid intake). Please drink at least 32 ounces of fluids a day. Watermelon, cantaloupe, celery stick, cucumber are high in water content. These could help you be hydrated. Pending Studies at Discharge: No Stand-Alone Forms: My [facility], Smoking Cessation Medications and DC Order Prescriptions: Continued carbidopa-levodopa 25-100 mg tablet 1 tab PO QAM Qty: 90 2RF carbidopa-levodopa 50-200 mg tablet extended release 1 tab PO TID Qty: 270 2RF Rx Instructions: 0800; 1200 and 1600 donepezil 10 mg tablet 10 mg PO HS 90 Days Qty: 90 2RF zonisamide 100 mg capsule 100 mg PO TID Qty: 270 2RF Rx Instructions: 0800; 1200; 1600 mirtazapine 15 mg tablet 15 mg PO HS alendronate 70 mg tablet 70 mg PO SA sertraline 100 mg tablet 100 mg PO DAILY quetiapine 50 mg tablet 50 mg PO QPM Rx Instructions: 1600 gabapentin 100 mg capsule 100 mg PO TID cholecalciferol (vitamin D3) [Vitamin D3] 50 mcg (2,000 unit) Capsule 50 mcg PO DAILY Discharge Orders: Discharge Order (Routine); Ordered 10/25/23 Ordered By: Kwame Bateman Admission Data Admit Date/Time: 10/24/23 15:33 Attending Provider: Kwame Bateman Admit Provider: Mikey Holden Primary Care Provider: Jen Lawler Other Providers: Mikey Holden Other Interventions: Discharge Summary Assessment (RN) Last Done: 10/25/23 11:54
--- NOTE | 2023-10-25 19:15 | Electrocardiogram Report ---
Test Reason : Blood Pressure : / mmHG Vent. Rate : 106 BPM Atrial Rate : 106 BPM P-R Int : 146 ms QRS Dur : 076 ms QT Int : 342 ms P-R-T Axes : 058 026 063 degrees QTc Int : 454 ms Sinus tachycardia Nonspecific ST abnormality Abnormal ECG When compared with ECG of 26-DEC-2022 16:47, No significant change Confirmed by Agustin Staples ([id number]) on 10/25/2023 7:14:53 PM Referred By: REFERRED SELF Confirmed By:Agustin Staples
[2023-10-25] MEDS ORDERED: ENOXAPARIN INJ 30 MG/0.3 ML SYR SQ SCH (21:00)
== END 2023-10-25 12:48 | disposition home or self-care (01) ==
LOC: ED 11:39 → 3W 11:39 → SUATTDRO 15:33 → 3W 16:49